=== PATIENT | male | born 1995 | race African-American/Black ===

== ENCOUNTER 2017-08-22 17:49 | Emergency (ER) | payer BC, OTHER ==
[~2017-08-22] VITALS: Ht 185.4 cm; Wt 97.7 kg
[~2017-08-22 17:49] MED LIST: FLUT0.15; FLUT220A INH
[2017-08-22 18:07] VITALS: Ht 185.4 cm; Wt 97.7 kg
[2017-08-22] MEDS ORDERED: FLVHFA110 INH (20:08)
[2017-08-22] MEDS ORDERED: VNTHFA/IN INH (20:08)
[2017-08-22] MEDS ORDERED: GUAI-13 PO (20:08)
[2017-08-22] MEDS ORDERED: ACETAMINOPHEN 500 MG TAB PO STA (20:11)
[2017-08-22] MEDS ORDERED: IBUPROFEN 200 MG TAB PO STA (20:11)
[2017-08-22] MEDS ORDERED: COUGH DROP (SUGAR FREE) LOZ 24 LOZ/1 BOX PO STA (20:11)
[2017-08-22] MEDS ORDERED: SODIUM CHLORIDE 0.9% 1000ML 1,000 ML IV STA (20:11)
[2017-08-22 20:39] LABS: BASO % 0.1 %; BASO ABS # 0.01 K/uL (0-0.2); COMPLETE YES; EOS % 6.3 %; HEMATOCRIT 50.6 % (42-52); IG% 0.1 %; LYMPH % 27.3 %; LYMPH ABS # 1.96 K/uL (1.2-3.4); MEAN CELL VOLUME 89.9 fL (80-100); MEAN CORPUSCULAR HEMOGLOBIN 29.3 pg (25-34); MEAN CORPUSCULAR HGB CONC 32.6 g/dl (32-36); MEAN PLATELET VOLUME 10.1 fL (7.4-10.4); MONO % 7.5 %; NEUT % 58.7 %; PLATELET COUNT 223 K/uL (130-400); RED BLOOD COUNT 5.63 M/uL (4.7-6.1); WHITE BLOOD COUNT 7.18 K/uL (4.8-10.8)
[2017-08-22] MEDS ORDERED: METHYLPREDNISOLONE 125 MG VIAL IV STA (20:50)
--- NOTE | 2017-08-22 20:57 | EMERGENCY ROOM VISIT NOTE ---
History Report prepared by Amy: Kavin Bernardo Under the Supervision of: Dr. Yariel Rockwell M.D. First contact with patient: 19:53 Chief Complaint: SHORTNESS OF BREATH Stated Complaint: HEADACHES, HEAVY COUGHING UP MUCUS Nursing Triage Summary: cough prod of mucus, sob, cp with cough for a few days. has been using his inhaler and taking cough syrup. pt has muscular pain in chest and back with cough, "feels muscular". History of Present Illness The patient is a 22 year old black male with a past medical history of asthma who presents to the ED with a cc of constant SOB beginning three days ago. The patient states that he has been experiencing a cough that is intermittently productive with yellow sputum. He reports that the coughing has been causing him back pain. The patient states that he has a history of asthma and reports that at one point he was worried he was going to have an asthma attack. He states that he has not had an asthma attack in a long time. The patient states that he has been using his inhaler, which he uses as needed. He reports that his asthma is typically worsened during seasonal changes. The patient reports that he also took Tussin DM, which he admits works for a short amount of time. He denies any intubation in the past for his asthma. Positive productive cough, sore throat, drainage that is colored. Negative sick contact, allergies, surgeries, alcohol use, drug use, nausea, vomiting. Source of History: patient Onset: three days ago Position: other (global) Timing: constant Modifying Factors (Relieving): other (inhaler, Tussin) Associated Symptoms: + sorethroat, + cough, + back pain, No nausea, No vomiting Review of Systems See HPI for pertinent positives and negatives. A total of ten systems were reviewed and were otherwise negative. Past Medical & Surgical Medical Problems: (1) Asthma (2) Pericarditis Family History Hypertension Social History Smoking Status: Never Smoker Drug Use: none Marital Status: single Occupation Status: [employer] student Current/Historical Medications Scheduled Prednisone (Prednisone), 50 MG PO DAILY Scheduled PRN Albuterol Hfa (Ventolin Hfa), 2 PUFFS INH Q4 PRN for SOB/Wheezing Fluticasone Propionate (Flovent Hfa), 2 PUFFS INH BID PRN for Shortness of Breath Guaifenesin (Tussin), 5 ML PO Q6 PRN for Cough Allergies Coded Allergies: No Known Allergies (Unverified , 10/01/16) Physical Exam Vital Signs Date Time Temp Pulse Resp B/P (MAP) Pulse Ox O2 Delivery O2 Flow Rate FiO2 08/22/17 22:02 37.0 59 18 142/81 100 08/22/17 21:17 59 18 142/81 100 Room Air 08/22/17 20:00 100 Room Air 08/22/17 19:59 55 20 131/95 100 Room Air 08/22/17 18:07 97 Room Air 08/22/17 18:07 37.0 71 18 137/77 97 Room Air Physical Exam GENERAL: Awake, alert, well-appearing, NAD HENT: Normocephalic, atraumatic. EYES: Normal conjunctiva. Sclera non-icteric. NECK: Supple. No nuchal rigidity. FROM. RESPIRATORY: tracing expiratory wheezing throughout all lung griffiths. CARDIAC: RRR, no MRG ABDOMEN: Soft, NTND, BS+ MSK: No chest wall TTP, no LE edema NEURO: GCS 15, CN 2-12 intact, moves all 4s on command SKIN: No rash or jaundice noted. Medical Decision & Procedures ER Provider Diagnostic Interpretation: X-ray: Per my interpretation, radiologist review. CHEST 2 VIEWS ROUTINE CLINICAL HISTORY: 22 years-old Male presenting with chest pain/cough. TECHNIQUE: PA and lateral views of the chest were obtained. COMPARISON: 10/01/2016. FINDINGS: Cardiomediastinal silhouette normal. Lungs and pleural spaces clear. Osseous structures normal. Upper abdomen normal. IMPRESSION: 1. No acute cardiopulmonary disease. Electronically signed by: Guerrero Christian M.D. 08/22/2017 9:37 PM Dictated Date/Time: 08/22/2017 9:37 PM Laboratory Results 08/22/17 20:21 Red Blood Count 5.63, Mean Corpuscular Volume 89.9, Mean Corpuscular Hemoglobin 29.3, Mean Corpuscular Hemoglobin Concent 32.6, Mean Platelet Volume 10.1, Neutrophils (%) (Auto) 58.7, Lymphocytes (%) (Auto) 27.3, Monocytes (%) (Auto) 7.5, Eosinophils (%) (Auto) 6.3, Basophils (%) (Auto) 0.1, Neutrophils # (Auto) 4.21, Lymphocytes # (Auto) 1.96, Monocytes # (Auto) 0.54, Eosinophils # (Auto) 0.45, Basophils # (Auto) 0.01 08/22/17 20:21 Test 08/22/17 20:21 White Blood Count 7.18 K/uL (4.8-10.8) Red Blood Count 5.63 M/uL (4.7-6.1) Hemoglobin 16.5 g/dL (14.0-18.0) Hematocrit 50.6 % (42-52) Mean Corpuscular Volume 89.9 fL (80-100) Mean Corpuscular Hemoglobin 29.3 pg (25-34) Mean Corpuscular Hemoglobin Concent 32.6 g/dl (32-36) Platelet Count 223 K/uL (130-400) Mean Platelet Volume 10.1 fL (7.4-10.4) Neutrophils (%) (Auto) 58.7 % Lymphocytes (%) (Auto) 27.3 % Monocytes (%) (Auto) 7.5 % Eosinophils (%) (Auto) 6.3 % Basophils (%) (Auto) 0.1 % Neutrophils # (Auto) 4.21 K/uL (1.4-6.5) Lymphocytes # (Auto) 1.96 K/uL (1.2-3.4) Monocytes # (Auto) 0.54 K/uL (0.11-0.59) Eosinophils # (Auto) 0.45 K/uL (0-0.5) Basophils # (Auto) 0.01 K/uL (0-0.2) RDW Standard Deviation 41.6 fL (36.4-46.3) RDW Coefficient of Variation 12.7 % (11.5-14.5) Immature Granulocyte % (Auto) 0.1 % Immature Granulocyte # (Auto) 0.01 K/uL (0.00-0.02) Anion Gap 5.0 mmol/L (3-11) Est Creatinine Clear Calc Drug Dose 131.8 ml/min Estimated GFR () 111.4 Estimated GFR (Non- 96.1 BUN/Creatinine Ratio 6.4 (10-20) Calcium Level 9.5 mg/dl (8.5-10.1) Laboratory results reviewed by me Medications Administered Medications (Trade) Dose Ordered Sig/Giuliana Route Start Time Stop Time Status Last Admin Dose Admin Sodium Chloride 1,000 ml @ 999 mls/hr Q1H1M STAT IV 08/22/17 20:11 08/22/17 21:11 DC 08/22/17 20:46 999 MLS/HR Ibuprofen (Advil Tab) 400 mg NOW STAT PO 08/22/17 20:11 08/22/17 20:13 DC 08/22/17 20:45 400 MG Acetaminophen (Tylenol Tab) 1,000 mg NOW STAT PO 08/22/17 20:11 08/22/17 20:13 DC 08/22/17 20:46 1,000 MG Menthol (Nice Bradly) 1 bradly NOW STAT PO 08/22/17 20:11 08/22/17 20:13 DC 08/22/17 20:46 1 BRADLY Methylprednisolone Sodium Succinate (Solu-Medrol IV) 125 mg NOW STAT IV 08/22/17 20:50 08/22/17 20:51 DC 08/22/17 21:15 125 MG ECG Indication: SOB/dyspnea Rate (beats per minute): 57 Rhythm: sinus bradycardia, sinus with SA Findings: T-wave inversion (Lead 3, Not continuous), other (No ST changes. Normal axis and intervals) ED Course 2041: The patient was evaluated in room A12A. A complete history and physical exam was performed. 2147:I reevaluated the patient and he is no longer wheezing. Discussed results and discharge instructions: He verbalized understanding and agreement. The patient is ready for discharge. Medical Decision The differential diagnosis includes etiologies such as: URI, pharyngitis sinusitis, asthma exacerbation, pna, and bronchitis. Patient w/ known h/o asthma. Patient w/ trace end expiratory wheezes. URI symptoms as well. Patient given steroids. CXR clear. Less likely PE or ACS given h/o and physical exam. HEART score < 3. PERC out. Patient feeling improved after symptmatic care. D/c'ed to home. Medication Reconcilliation Current Medication List: was personally reviewed by me Blood Pressure Screening Patient's blood pressure: Elevated blood pressure Blood pressure disposition: Referred to PCP Impression Primary Impression: Asthma with exacerbation Additional Impression: URI (upper respiratory infection) Scribe Attestation The scribe's documentation has been prepared under my direction and personally reviewed by me in its entirety. I confirm that the note above accurately reflects all work, treatment, procedures, and medical decision making performed by me. Departure Information Dispostion Home / Self-Care Prescriptions Prednisone (PREDNISONE) 50 Mg Tab 50 MG PO DAILY for 4 Days, #4 TAB Prov: Yariel Rockwell M.D. 08/22/17 Referrals No Doctor, Assigned (PCP) Patient Instructions [facility] Additional Instructions Please return to the emergency department if you have worsening or recurrent symptoms not amenable to at-home treatment. Please call for a follow-up appointment with her primary care physician. Please take your medications as prescribed. If you have other concerns and/or complaints please feel free to also call your primary care physician's office or return the ED for further evaluation, management, and treatment. You may take 600 mg Ibuprofen every 6 hours as needed for pain/congestion with food for no more than 2 consecutive days. You may take tylenol 1000mg every 6 hours as needed for pain/congestion. You may take motrin and tylenol separately or at the same time. Take prednisone w/ food and preferably in morning. You may take over the counter decongestant but do not take for more than 3 consecutive days. Take albuterol 2 puffs every 6 hours x 1 day, then albuterol 1 puff every 6 hours x 1 day, then as needed. You have been examined and treated today on an emergency basis only. This is not a substitute for, or an effort to provide, complete comprehensive medical care. It is impossible to recognize and treat all injuries or illnesses in a single emergency department visit. It is therefore important that you follow up closely with [facility]. Call as soon as possible for an appointment. Thank you for your time and consideration. I look forward to speaking with you again soon. Please don't hesitate to call us if you have any questions. School Instructions Return To School: 1 day Problem Qualifiers Primary Impression: Asthma with exacerbation Asthma severity: mild intermittent Qualified Codes: J45.21 - Mild intermittent asthma with (acute) exacerbation Additional Impression: URI (upper respiratory infection) URI type: unspecified URI Qualified Codes: J06.9 - Acute upper respiratory infection, unspecified
[2017-08-22 21:08] LABS: BUN/CREATININE RATIO 6.4 (10-20); CALCIUM 9.5 mg/dl (8.5-10.1); CREATININE 1.1 mg/dl (0.60-1.40); POTASSIUM 3.9 mmol/L (3.5-5.1)
--- NOTE | 2017-08-22 21:39 | DIAGNOSTIC IMAGING REPORT ---
CHEST 2 VIEWS ROUTINE CLINICAL HISTORY: 22 years-old Male presenting with chest pain/cough. TECHNIQUE: PA and lateral views of the chest were obtained. COMPARISON: 10/01/2016. FINDINGS: Cardiomediastinal silhouette normal. Lungs and pleural spaces clear. Osseous structures normal. Upper abdomen normal. IMPRESSION: 1. No acute cardiopulmonary disease. Electronically signed by: Guerrero Christian M.D. 08/22/2017 9:37 PM Dictated Date/Time: 08/22/2017 9:37 PM
[2017-08-22] MEDS ORDERED: PRED50TA PO (21:56)
[2017-08-22 22:02] VITALS: BP 142/81; PULSE 59; TEMP 37; O2SAT 100
== END 2017-08-22 22:03 | disposition home or self-care (01) ==
LOC: C.EDB 17:52 → C.EDA 22:03
DX: J45.21 Mild intermittent asthma with (acute) exacerbation (principal); J06.9 Acute upper respiratory infection, unspecified; I31.9 Disease of pericardium, unspecified; Z82.49 Family history of ischemic heart disease and other diseases of the circulatory system